=== PATIENT | male | born 1980 | race African-American/Black ===

== ENCOUNTER 2020-06-04 18:34 | Emergency (ER) | payer OTHER, SELFPAY ==
[2020-06-05 19:47] LABS: SARS-CoV-2 N Gene Positive; SARS-CoV-2 orf1ab Positive
[2020-06-05 19:48] LABS: SARS-CoV-2 MS2 Positive; SARS-CoV-2 S Gene Positive
== END 2020-06-04 19:38 | disposition home or self-care (01) ==
LOC: NAV ERS 18:34
DX: Z53.21 Procedure and treatment not carried out due to patient leaving prior to being seen by health care provider (principal)
CPT/HCPCS: 87635; U0003

== ENCOUNTER 2020-06-12 14:22 | Emergency (ER) | payer OTHER, SELFPAY | END 2020-06-12 15:39 | disposition home or self-care (01) | LOC: NAV ERS 14:22 | DX: Z11.59 Encounter for screening for other viral diseases (principal); F17.210 Nicotine dependence, cigarettes, uncomplicated | CPT/HCPCS: 99283 ==